=== PATIENT | female | born 1965 | race Caucasian/White ===

== ENCOUNTER 2017-09-21 16:56 | Emergency (ER) | payer BC ==
[~2017-09-21] VITALS: Ht 157.5 cm; Wt 50.8 kg
[2017-09-21 17:38] VITALS: BP 136/81
--- NOTE | 2017-09-21 17:57 | PCM.EKG ---
[facility] Test Date: 2017-09-21 Test Time: 17:59:38 Pat Name: DRAGAN VARGAS Department: Room: Gender: F Environmental Engineering Assistant: : 1965 Requested By: RENÉ GELLER Order Number: [id number] Reading MD: René Geller Measurements Intervals [place]comb Rate: 91 P: 67 SC: 144 QRS: 66 QRSD: 76 T: 61 QT: 358 QTc: 440 Interpretive Statements Normal sinus rhythm Normal ECG No previous ECG available for comparison Electronically Signed On 09-21-2017 18:36:58 CDT by René Geller Please click the below link to view image of tracing.
--- NOTE | 2017-09-21 18:01 | ER.PDOC ---
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 Pt has only had tachycardia before w/ her anxiety and currently she gets the tingling in waves now. No sob, diaphoresis, syncope, n/v, leg c/os or prior rubber band episode. Timing/Duration: intermittent, other Severity/Quality: moderate Radiation: jaw, arms Activities at Onset: rest Prior CP/Workup: No Prior Chest Pain Modifying Factors: breathing; No palpation Nitro Today/Relief: No Nitro Taken Today Aspirin Today: No Aspirin Today Associated Symptoms: denies symptoms Prior symptoms/Treatment: Similar symptoms previous (somewhat, see note) Allergies: Coded Allergies: Sulfa (Sulfonamide Antibiotics) (Verified Allergy, Unknown, 09/21/17) Home Meds No Active Prescriptions or Reported Meds Past Medical History Medical History: cardiac problems, other (perimenopausal) Surgical History: tonsillectomy, other LMP (females 10-50): postmenopause Social History Smoking: non-smoker Alcohol Use: occassionally Drug Use: none Reviewed Nursing Reviewed: Vital Signs, Abn. Noted, Nursing Assessment Constitutional: no symptoms reported; denies diaphoresis, denies fever, denies malaise, denies weakness EENTM: no symptoms reported; denies double vision Respiratory: denies cough, denies orthopnea, denies shortness of breath, denies wheezing Cardiovascular: see HPI; denies edema, denies palpitations, denies syncope Gastrointestinal: no symptoms reported; denies abdominal pain, denies diarrhea , denies nausea, denies rectal bleeding, denies vomiting Genitourinary: no symptoms reported Musculoskeletal: see HPI; denies back pain, denies neck pain Skin: no symptoms reported; denies rash Psychiatric/Neurological: see HPI, anxiety; denies headache, denies numbness; tingling; denies weakness Endocrine: no symptoms reported All Other Systems: Reviewed and Negative Physical Exam General Appearance: No Apparent Distress, WD/WN, Anxious HEENT: PERRL/EOMI, Normal ENT Inspection, TMs Normal, Pharynx Normal Neck: Non-Tender, Full Range of Motion, Supple, Normal Inspection Respiratory: chest non-tender, lungs clear, normal breath sounds, no respiratory distress, no accessory muscle use Cardiovascular: Normal Peripheral Pulses, Regular Rate, Rhythm, No Edema, No Gallop, No JVD, No Murmur, Tachycardia Gastrointestinal: Normal Bowel Sounds, No Organomegaly, No Pulsatile Mass, Non Tender, Soft Extremities: Normal Range of Motion, Non-Tender, Normal Inspection, No Pedal Edema, No Calf Tenderness, Normal Capillary Refill Neurologic/Psychiatric: administrative coordinator II-XII NML as Tested, No Motor/Sensory Deficits, Alert, Normal Mood/Affect, Oriented x 3 Skin: Normal Color, Warm/Dry Progress Progress doubt cardiac, consider musculoskeletal w/ anxiety component, r/o PE, doubt dissection 1845 pt improved. disc limitations of testing and need for f/u. Reviewed results with ptrasheed and pt/nelli agrees with treatment plan and discharge and without questions at d/c. 911/ ER precautions discussed. EKG/XRAY/CT/US EKG: NSR EKG Comments: 91, nl ekg XRAY: chest XRAY Comments: nad Course Sepsis Screening Results: Posi: POSITIVE SEPSIS RISK Vitals & review Data Vital Sign - Last 24 Hours 09/21/17 09/21/17 09/21/17 17:35 17:35 17:38 Temp 98.7 98.7 98.7 Pulse 95 103 95 Resp 17 17 17 B/P (MAP) 136/81 (99) Pulse Ox 99 99 O2 Delivery Room Air Room Air Departure Time of Disposition: 18:48 Disposition: 01 HOME, SELF-CARE Impression: Primary Impression: Chest pain Additional Impressions: Sinus tachycardia MVP (mitral valve prolapse) Condition: Stable Referrals: PCP,UNKNOWN (PCP) PRIMARY CARE PROVIDER Additional Instructions: See your DrKutr on Saturday, sooner if worsens. Scripts No Active Prescriptions or Reported Meds Duration or Time Spent with Pa: 20 Problem Qualifiers Primary Impression: Chest pain Chest pain type: unspecified Qualified Codes: R07.9 - Chest pain, unspecified RACHANA GELLER MD Sep 21, 2017 18:01
[2017-09-21 18:02] LABS: BASOPHIL % 0.5 % (0.0-0.2); EOSINOPHIL # 0.1 10^3/uL (0.0-0.2); EOSINOPHIL % 0.9 % (0.0-5.0); HEMOGLOBIN 11.7 g/dL (12.0-15.0); LYMPHOCYTES # 2.3 10^3/uL (1.0-4.8); LYMPHOCYTES % 26.2 % (24.0-44.0); MEAN CELL HGB 29.9 pg (26-34); MEAN CELL HGB CONCENTRATION 33.3 g/dL (33-37); MEAN CORP VOLUME 89.8 fL (78-100); MONOCYTES % 10.7 % (5.0-12.0); NEUTROPHIL # 5.4 10^3/uL (1.8-7.7); NEUTROPHILS % 61.4 % (41.0-85.0); RED CELL DISTRIBUTION WIDTH 12.4 % (11.5-14.5); WHITE BLOOD CELL 8.8 10^3/uL (4.5-11.0)
[2017-09-21 18:19] LABS: HCG QUALITATIVE SERUM NEGATIVE (NEGATIVE)
[2017-09-21 18:25] LABS: ALANINE AMINOTRANSFERASE(ML) 15 U/L (12-78); ALKALINE PHOSPHATASE 53 U/L (50-136); ASPARTATE AMINO TRANSFERASE 15 U/L (0-35); CALCIUM 8.5 mg/dL (8.4-10.5); CARBON DIOXIDE 25.1 mmol/L (20.0-32); GLUCOSE 123 mg/dL (70-110)
[2017-09-21] MEDS ORDERED: ATIVAN IV STA (18:27)
[2017-09-21] MEDS ORDERED: ATIVAN ONE (18:34)
[2017-09-21 18:46] LABS: BILIRUBIN,URINE NEGATIVE (NEGATIVE); UROBILINOGEN,URINE NORMAL (NEGATIVE)
[2017-09-21 19:00] LABS: APPEARANCE,URINE CLEAR (CLEAR); UA COLOR STRAW (YELLOW)
--- NOTE | 2017-09-21 19:06 | DIREP ---
PROCEDURE:CHEST 1 VIEW COMPARISON:None. INDICATIONS:cp FINDINGS: LUNGS/PLEURA:No significant pulmonary parenchymal abnormalities. No effusions. VASCULATURE:Normal. Unremarkable pulmonary vasculature. CARDIAC:Normal. No cardiac silhouette abnormality or cardiomegaly. MEDIASTINUM:Normal. No visible mass or adenopathy. BONES:Normal. No fracture or visible bony lesion. OTHER:Negative. CONCLUSION:Normal examination. Dictated by: Nanette Stout MD on 09/21/2017 at 07:05 PM
[2017-09-21 19:12] VITALS: BP 124/74
[2017-09-21 19:13] VITALS: BP 136/81
--- NOTE | 2017-09-21 19:15 | NUR ---
IV DC'D TIP INTACT, NO BLEEDING
== END 2017-09-21 19:14 | disposition home or self-care (01) ==
LOC: ER 16:56
DX: I34.1 Nonrheumatic mitral (valve) prolapse (principal); R00.0 Tachycardia, unspecified; F41.9 Anxiety disorder, unspecified; Z88.2 Allergy status to sulfonamides
CPT/HCPCS: 36415; 71045; 80053; 80307; 81000; 83880; 84484; 84703; 85025; 85379; 85610; 85730; 86677; 93005; 99285; J2060